=== PATIENT | female | born 1985 ===

== ENCOUNTER 2024-01-09 18:15 | Inpatient (IN) ==
[2024-01-09] MEDS ORDERED: Nalbuphine 10 MG/ML 1 ML VIAL IV PRN (19:35)
[2024-01-09] MEDS: Dinoprostone 10 MG VAG.SUPP VAGINAL ONE (20:56)
[2024-01-09] MEDS: Insulin NPH 100 units/ml SUBCUT ONE (21:03)
[2024-01-09 23:52] LABS: Urine Benzodiazepine Screen None Detected (None Detect); Urine Cannabinoids Screen None Detected (None Detect); Urine Opiates Screen None Detected (None Detect)
[2024-01-10] MEDS: Calcium Carb (TUMS) 500 mg CHEW TAB PO PRN (00:50)
[2024-01-10] MEDS: Buffered Lidocaine 1% SYRIN 1 ml INTRADERM ONE (09:51)
[2024-01-10] MEDS: Lactated Ringers 1000 ml BAG 1,000 ML IV ONE (10:46)
[2024-01-10] MEDS: Oxytocin in LR 20,000 MILLI.UNIT/1,000 ML BAG IV SCH (11:00)
[2024-01-10 11:03] LABS: ABS Basophils 0.1 10^3/uL (0.0-0.1); ABS Eosinophils 0.2 10^3/uL (0.0-0.5); ABS Lymphocytes 1.2 10^3/uL (1.0-4.8); ABS Monocytes 0.6 10^3/uL (0.0-0.9); ABS Neutrophils 8.2 10^3/uL (1.5-7.6); ABS Nucleated RBC 0.01 10^3/ul; Eosinophil % 2.3 %; Hematocrit 37.8 % (35-45); Hemoglobin 12.2 g/dL (11.5-14.3); Lymphocyte % 11.6 %; Mean Corpuscular Hemoglobin 22.3 pg (27-33); Mean Corpuscular Hgb Conc 32.3 g/dL (31-36); Mean Corpuscular Volume 69.1 fL (80-97); Mean Platelet Volume 10.3 fL (7.5-11.2); Nucleated Red Blood Cells % 0.1 %/100WBC (0.0-0.8); Platelet Count 146 10^3/uL (150-450); Red Blood Count 5.47 10^6/uL (3.63-4.92); Red Cell Distribution Width 16.3 % (12-17); White Blood Count 10.4 10^3/uL (3.8-11.8)
[2024-01-10 11:22] LABS: Albumin 3.6 g/dL (3.2-5.2); Albumin/Globulin Ratio 1.3 (1-3); Calcium 9.4 mg/dL (8.6-10.3); Creatinine, Serum 0.57 mg/dL (0.51-0.95); Globulin 2.8 g/dL (2-4); Total Bilirubin 0.6 mg/dL (0.2-1.0); Total Protein 6.4 g/dL (6.4-8.9); eGFR CKD-EPI 119.2 (>60)
[2024-01-10] MEDS: miSOPROStol 100 mcg TAB PO SCH (13:25)
[2024-01-10] MEDS: Insulin NPH 100 units/ml SUBCUT ONE (22:21)
[2024-01-11] MEDS: Prochlorperazine 5 mg/ml 2 ml VIAL (10 mg) IV PRN (05:09)
[2024-01-11] MEDS: Lidocaine/Epineph/Tetraca GEL 3 ML GEL IN SYR TOPICAL ONE (05:20)
[2024-01-11] MEDS: Lactated Ringers 1000 ml BAG 1,000 ML IV SCH ×2 (05:29→09:51)
[2024-01-11] MEDS: OBEPIDURAL (200 ML) 200 ML EPIDURAL ONE (06:38)
[2024-01-11] MEDS: Lidocaine 1.5% EPI 1:200,000 30 ML SDV ONE (06:39)
[2024-01-11] MEDS ORDERED: Sodium Citrate/Citric Acid LIQ 15 ML UDC PO PRN (07:16)
[2024-01-11] MEDS ORDERED: Phenylephrine 40 mcg/mL 10mL (400mcg) SYRINGE IV PUSH PRN (07:16)
[2024-01-11] MEDS: Phenylephrine 40 mcg/mL 10mL (400mcg) SYRINGE IV PUSH PRN (07:55)
[2024-01-11 08:00] LABS: Urine Appearance Clear; Urine Bilirubin Negative (Negative); Urine Blood 1+ (Negative); Urine Color Yellow; Urine Glucose Negative (Negative); Urine Ketones 3+ (Negative); Urine Nitrite Negative (Negative); Urine Protein 1+ (>=30 mg/dL) (Negative); Urine Specific Gravity 1.024 (1.002-1.030); Urine Urobilinogen Negative (Negative); Urine pH 5.5 (5.0-8.0)
[2024-01-11 08:10] LABS: Urine Bacteria Absent /HPF (Absent); Urine Red Blood Cell 3+(>10/hpf) /HPF (0-Trace); Urine Squamous Epithelial Cell Present /HPF (Absent); Urine White Blood Cell Trace(0-5/hpf) /HPF (0-Trace)
[2024-01-11] MEDS: OBEPIDURAL (200 ML) 200 ML EPIDURAL SCH (09:37)
[2024-01-11] MEDS: Lactated Ringers 1000 ml BAG 1,000 ML IV ONE (09:38)
[2024-01-11] MEDS: Oxytocin in LR 20,000 MILLI.UNIT/1,000 ML BAG IV SCH (11:19)
[2024-01-11] MEDS ORDERED: Glycerin ADULT 2.4 gm SUPP PR PRN (15:16)
[2024-01-11] MEDS: Witch Hazel PAD JAR TOPICAL PRN (15:44)
[2024-01-11] MEDS: Dibucaine 1% OINT 28.35 GM TUBE PR PRN (15:44)
[2024-01-11] MEDS ORDERED: Lactated Ringers 1000 ml BAG 1,000 ML IV SCH (16:00)
[2024-01-11] MEDS: Lidocaine 1% VIAL 10 MG/ML 30 ML VIAL INJ PRN (16:50)
[2024-01-11] MEDS ORDERED: Insulin NPH 100 units/ml SUBCUT SCH (21:00)
[2024-01-12 07:29] LABS: ABS Basophils 0.1 10^3/uL (0.0-0.1); ABS Eosinophils 0.3 10^3/uL (0.0-0.5); ABS Lymphocytes 1.9 10^3/uL (1.0-4.8); ABS Monocytes 1.2 10^3/uL (0.0-0.9); ABS Neutrophils 9.7 10^3/uL (1.5-7.6); ABS Nucleated RBC 0.01 10^3/ul; Hematocrit 25.1 % (35-45); Hemoglobin 8.4 g/dL (11.5-14.3); Lymphocyte % 14.3 %; Mean Corpuscular Hemoglobin 23.1 pg (27-33); Mean Corpuscular Hgb Conc 33.4 g/dL (31-36); Mean Platelet Volume 9.4 fL (7.5-11.2); Platelet Count 121 10^3/uL (150-450); Red Blood Count 3.63 10^6/uL (3.63-4.92); Red Cell Distribution Width 16.3 % (12-17); White Blood Count 13.1 10^3/uL (3.8-11.8)
[2024-01-12] MEDS: Iron Sucrose 200 MG in NS 0.9% 100 ml BAG 100 ML IVPB ONE (17:30)
[2024-01-12] MEDS: Lidocaine 1.5% EPI 1:200,000 30 ML SDV ONE (19:26)
[2024-01-12] MEDS: Oxytocin in LR 20,000 MILLI.UNIT/1,000 ML BAG IV SCH (19:27)
[2024-01-13 09:19] VITALS: BP 145/88
[2024-01-13] MEDS: Polyethylene Glycol 3350 17 GM PACKET PO SCH (13:52)
== END 2024-01-13 16:00 | disposition home or self-care (01) | DRG 542 ==
LOC: MCHOBOUT 18:15 → MCHOB 19:08
PROVIDERS: ADMIT Obstetrics & Gynecology; ATTEND Obstetrics & Gynecology